=== PATIENT | female | born 2005 | race Caucasian/White ===

== ENCOUNTER 2024-10-10 11:04 | Outpatient (CLI) | payer OTHER, SELFPAY ==
--- NOTE | ~2024-10-10 | CT_ITS ---
EXAMINATION: CT soft tissue neck w con DATE: 10/10/2024 11:50 INDICATION: Cervical lymphadenopathy with left-sided neck swelling and intermittent pain TECHNIQUE: Computed tomography (CT) of the neck was performed with 75 mL Omnipaque-350 intravenous co ntrast. Automated exposure control and iterative reconstruction technique were employed. The dose-allyssa gth product was 409.77 mGy-cm. COMPARISON: None FINDINGS: Orbits are normal. The paranasal sinuses are clear. Mastoid aircells and middle ear cavities are tata r. Submandibular and parotid glands are normal and symmetric. Thyroid gland is unremarkable. There is asymmetric enlarged retropharyngeal soft tissues at the left posterior aspect of the pharynx at the junction of the oropharynx and nasopharynx. There is left jugular chain lymphadenopathy with largest left upper jugular chain lymph node measuring 1.9 x 1.0 cm. There is additional lymphadenopathy at th e bilateral posterior cervical triangles particularly on the left where there is a 3.8 x 2.0 cm lymph node situated deep to the sternocleidomastoid muscle. Additional large posterior triangle lymph node s extending caudally to the level of the thyroid. There are also likely enlarged left supraclavicular lymph nodes however assessment is limited by streak artifact from dense contrast in the left brachio cephalic vein extending to some vertebral collaterals. The right posterior triangle lymph nodes measu re up to 2.1 x 1.1 cm. The vasculature is patent and normal in caliber. Enlarged left retrocrural ph aryngeal soft tissues mildly narrow the pharyngeal airway posterior to the soft palate. Airway is oth erwise unremarkable. Superior mediastinum is unremarkable. Lung apices are normal. Bones are unremar kable. IMPRESSION: 1. Poorly defined asymmetrically enlarged retropharyngeal soft tissues centered at the left side of t he junction of the oropharynx and nasopharynx which could be infectious, inflammatory or malignant in etiology. Given patient age would favor lymphoma over squamous cell carcinoma or other primary malig анна and metastatic disease. 2. Asymmetric cervical lymphadenopathy with the largest lymph node in the left posterior triangle puneet suring 3.8 x 2.0 cm. Unless there is a clinically incontrovertible infectious etiology in which case radiographic follow-up could be considered, but otherwise recommend ultrasound-guided core needle bio psy. Reviewed, dictated and finalized at location A. IMPRESSION: 1. Poorly defined asymmetrically enlarged retropharyngeal soft tissues centered at the left side of the junction of the oropharynx and nasopharynx which could be infectious, inflammatory or malignant in etiology. Given patient age would favor lymphoma over squamous cell carcinoma or other primary malignancy and met astatic disease. 2. Asymmetric cervical lymphadenopathy with the largest lymph node in the left posterior triangle measuring 3.8 x 2.0 cm. Unless there is a clinically incontr overtible infectious etiology in which case radiographic follow-up could be con sidered, but otherwise recommend ultrasound-guided core needle biopsy.
--- OUTSIDE RECORDS SUMMARY | 2024-10-10 11:17 | XMS_ITS | Encounter Summary ---
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 Phone Unavailable Primary Care Provider Unavailabl e Encounter Details Date Type Department Care Team (Late st Contact Info) Description 08/10/2018 Abstract [facility] CONVERSION [address] [place] [address] , Generic Conversion, Social History Tobacco Use Types Packs/Day Years Used Date Smoking Tobacco: Never Assessed Comments Unknown Sex and Gender Information Value Date Recorded Sex Assigned at Not on file 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
--- OUTSIDE RECORDS SUMMARY | 2024-10-10 11:17 | XMS_ITS | Clinical Summary ---
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 Gender Identity Not on file Sexual Orientation Not on file Plan of Treatment Health Maintenance Due Date Last Done Comments Annual Physical 07/23/2007 HPV Vaccines (1 - 3-dose series) 07/23/2019 Meningococcal B Vaccine (1 o f 2 - Standard) 2020 Hepatitis C 2022 DTaP, Tdap and Td Vaccines ( 1 - Tdap) 07/23/2023 Hepatitis B Vaccines (1 of 3 - 19+ 3-dose series) 07/23/2023 COVID-19 Vaccine ( - 2023-2 5 season) 2023 Meningococcal Vaccine Aged Out No manuel kody eligible based on patient's age to complete this topic Pneumococcal Vaccine: Pediat rics (0 to 5 Years) and At-Risk Patients (6 to 49 Years) Aged Out No longer eligible b ased on patient's age to complete this topic RSV Immunizations Under 20 Months Aged Out No longer eligible based on patient's age to complete this topic
== END 2024-10-10 11:05 | disposition home or self-care (01) ==
PROVIDERS: PCP Registered Nurse; Visit Provider Registered Nurse
DX: R59.0 Localized enlarged lymph nodes (principal)
CPT/HCPCS: 70491; Q9967